=== PATIENT | female | born 1995 | race Caucasian/White ===

== ENCOUNTER 2017-03-11 08:19 | Inpatient (IN) | payer OTHER, BC ==
[~2017-03-11] VITALS: Ht 167.6 cm; Wt 83.3 kg
[2017-03-11 08:45] VITALS: BP 122/77
[2017-03-11 08:47] VITALS: BP 122/77
[2017-03-11] MEDS ORDERED: PREN1TAB60 PO (09:25)
[2017-03-11] MEDS ORDERED: FENTANYL PF 100 MCG/2ML ONE ×2 (11:36→12:05)
[2017-03-11] MEDS ORDERED: OXYTOCIN 30U/ 0.9% NaCL 500ML 500 ML IV ONE (11:46)
[2017-03-11] MEDS: D5%-LACTATED RINGERS 1,000 ML IV SCH ×2 (11:46→19:46)
[2017-03-11] MEDS ORDERED: ONDANSETRON 2MG/ML, 2ML IVPush PRN ×2 (12:00→16:00)
[2017-03-11] MEDS ORDERED: FENTANYL PF 100 MCG/2ML IV PRN (12:00)
[2017-03-11] MEDS ORDERED: FENTANYL PF 100 MCG/2ML IVPush PRN (12:00)
[2017-03-11] MEDS ORDERED: BUPIVACAINE 0.25% ONE (12:06)
[2017-03-11] MEDS ORDERED: FENTANYL/BUPIV./NS/PF 250 ML EPIDCONT ONE (12:06)
[2017-03-11] MEDS ORDERED: LIDOCAINE 1%, 20ML ONE (12:07)
[2017-03-11] MEDS ORDERED: OXYTOCIN 30U/ 0.9% NaCL 500ML 500 ML ONE (12:07)
[2017-03-11] MEDS ORDERED: MISOPROSTOL 200 MCG TABLET ONE (12:07)
[2017-03-11] MEDS ORDERED: NEWBORN KIT ONE ×2 (12:07→12:10)
[2017-03-11] MEDS: LACTATED RINGERS 1,000 ML IV SCH ×3 (12:18→23:41)
[2017-03-11 12:22] LABS: HEMATOCRIT 37.4 % (34.6-47.8); HEMOGLOBIN 12.4 g/dL (11.7-16.4)
[2017-03-11] MEDS: PLEASE ENTER HEIGHT AND WEIGHT MC SCH ×2 (13:00→21:00)
[2017-03-11] MEDS ORDERED: LIDOCAINE/PF 1.5%-EPI 1:200K, 30ML ONE (13:53)
[2017-03-11] MEDS: FENTANYL/BUPIV./NS/PF 250 ML EPIDCONT SCH (15:41)
[2017-03-11] MEDS ORDERED: EPHEDRINE 50 MG/ML, 1ML IVPush PRN (16:00)
[2017-03-11] MEDS ORDERED: LACTATED RINGERS 1,000 ML IVBOLUS PRN (16:00)
[2017-03-11] MEDS ORDERED: ONDANSETRON 2MG/ML, 2ML ONE (17:40)
[2017-03-11] MEDS ORDERED: ACETAMINOPHEN 325 MG TABLET ONE ×2 (20:25)
[2017-03-11] MEDS ORDERED: ACETAMINOPHEN 325 MG TABLET PO PRN (20:30)
[2017-03-12] MEDS ORDERED: METOCLOPRAMIDE 5 MG/ML, 2ML IV ONE (01:30)
[2017-03-12] MEDS ORDERED: SODIUM CITRATE/CITRIC ACID 30 ML UDC PO ONE (01:30)
[2017-03-12] MEDS: LACTATED RINGERS 1,000 ML IV SCH ×7 (03:46→23:41)
[2017-03-12] MEDS: D5%-LACTATED RINGERS 1,000 ML IV SCH ×3 (03:46→19:46)
[2017-03-12] MEDS: PLEASE ENTER HEIGHT AND WEIGHT MC SCH (05:00)
[2017-03-12] MEDS ORDERED: OXYTOCIN 30U/ 0.9% NaCL 500ML 500 ML ONE (11:16)
[2017-03-12] MEDS ORDERED: METHYLERGONOVINE 0.2 MG/ML IM PRN (11:30)
[2017-03-12] MEDS ORDERED: OXYTOCIN 10 UNITS/ML, 1ML IM PRN (11:30)
[2017-03-12] MEDS ORDERED: HYDROcodone/APAP 5/325 TABLET PO PRN (11:30)
[2017-03-12] MEDS ORDERED: MISOPROSTOL 200 MCG TABLET PR PRN (11:30)
[2017-03-12] MEDS ORDERED: ONDANSETRON 2MG/ML, 2ML IV PRN (11:30)
[2017-03-12] MEDS: OXYTOCIN 30U/ 0.9% NaCL 500ML 500 ML IV SCH ×2 (11:42→21:21)
[2017-03-12] MEDS ORDERED: IBUPROFEN 600 MG TABLET ONE (12:11)
[2017-03-12] MEDS: IBUPROFEN 600 MG TABLET PO PRN ×2 (12:30→19:23)
[2017-03-12 14:42] VITALS: BP 114/69
[2017-03-12] MEDS: FENTANYL/BUPIV./NS/PF 250 ML EPIDCONT SCH (15:41)
[2017-03-12] MEDS: DOCUSATE 100 MG CAPSULE PO PRN (19:24)
[2017-03-12 19:30] VITALS: BP 137/59
[2017-03-12 19:41] LABS: HEMOGLOBIN 11.5 g/dL (11.7-16.4); WHITE BLOOD COUNT 20.4 x10^3/uL (3.4-10)
[2017-03-12] MEDS ORDERED: DIPH,PERTUSS(ACELL),TET VAC/PF NC IM-VACC ONE (20:30)
[2017-03-13 00:33] VITALS: BP 101/58
[2017-03-13] MEDS: IBUPROFEN 600 MG TABLET PO PRN ×3 (03:38→19:10)
[2017-03-13] MEDS: LACTATED RINGERS 1,000 ML IV SCH ×2 (03:46→07:41)
[2017-03-13] MEDS: D5%-LACTATED RINGERS 1,000 ML IV SCH (03:46)
[2017-03-13 03:54] VITALS: BP 109/64
[2017-03-13 07:10] VITALS: BP 112/69
[2017-03-13] MEDS: OXYTOCIN 30U/ 0.9% NaCL 500ML 500 ML IV SCH (07:21)
[2017-03-13] MEDS: PRENATAL VIT/IRON/FA 1 EACH TABLET PO SCH (08:22)
[2017-03-13] MEDS: DOCUSATE 100 MG CAPSULE PO PRN ×2 (08:22→20:44)
[2017-03-13] MEDS: HYDROcodone/APAP 5/325 TABLET PO PRN ×2 (08:22→14:03)
[2017-03-13 19:30] VITALS: BP 115/69
[2017-03-13] MEDS ORDERED: DIPH,PERTUSS(ACELL),TET VAC/PF NC IM-VACC ONE (21:00)
[2017-03-13] MEDS ORDERED: PLEASE ENTER ALLERGIES MC SCH ×2 (21:00)
[2017-03-14] MEDS: IBUPROFEN 600 MG TABLET PO PRN ×2 (03:41→15:18)
[2017-03-14] MEDS: HYDROcodone/APAP 5/325 TABLET PO PRN ×3 (03:42→15:18)
[2017-03-14 07:20] VITALS: BP 116/79
[2017-03-14] MEDS: DOCUSATE 100 MG CAPSULE PO PRN (09:11)
[2017-03-14] MEDS: PRENATAL VIT/IRON/FA 1 EACH TABLET PO SCH (09:11)
[2017-03-14] MEDS ORDERED: IBUP-1222 PO (11:23)
[2017-03-14] MEDS ORDERED: DOCU-131 PO (11:24)
[2017-03-14] MEDS ORDERED: HYDR-3240 PO (11:25)
== END 2017-03-14 15:58 | disposition home or self-care (01) | DRG 775 ==
LOC: LDOP 08:19 → LDIP 11:27 → 2NW 03-12 13:50
PROVIDERS: ADMIT Specialist; ATTEND Specialist
PROC: 10E0XZZ Delivery of Products of Conception, External Approach (ICD-10-PCS; principal; 2017-03-12)
PROC: 0KQM0ZZ Repair Perineum Muscle, Open Approach (ICD-10-PCS; 2017-03-12)
PROC: 3E0S3CZ (ICD-10-PCS; 2017-03-12)
PROC: 00HU33Z Insertion of Infusion Device into Spinal Canal, Percutaneous Approach (ICD-10-PCS; 2017-03-12)
DX: O34.83 Maternal care for other abnormalities of pelvic organs, third trimester (principal); O70.1 Second degree perineal laceration during delivery; Z37.0 Single live birth; N83.202 Unspecified ovarian cyst, left side; Z3A.40 40 weeks gestation of pregnancy; Z23 Encounter for immunization; Z88.0 Allergy status to penicillin
CPT/HCPCS: 36415; 85025; 86850; 86900; 90715; J2405; J3010; J3490; J2590; J7120

== ENCOUNTER → 2017-08-14 | Outpatient (CLI) | payer BC, OTHER ==
[~2017-08-14] MED LIST: CEFAZOLIN 1,000 MG ONE; DEXAMETHASONE 4 MG/ML, 1ML ONE; DOCU-131 PO; FENTANYL PF 100 MCG/2ML ONE; FENTANYL PF 250 MCG/5ML ONE; FLUO20TA25 PO; GLYCOPYRROLATE 0.4 MG/2 ML, 2ML ONE; HYDR-3240 PO; IBUP-1222 PO; KETOROLAC 30 MG/1 ML ONE; MIDAZOLAM 1 MG/ML, 2ML ONE; NEOSTIGMINE 1 MG/ML, 10ML ONE; ONDANSETRON 2MG/ML, 2ML ONE; PREN1TAB60 PO; PROPOFOL 10 MG/ML, 20ML ONE; ROCURONIUM 10 MG/ML,10ML ONE; SODIUM CHLORIDE 0.9% PF 10ML ONE
== END ==
LOC: STAR 10:13
PROVIDERS: ATTEND Specialist
DX: Z02.9 Encounter for administrative examinations, unspecified (principal)

== ENCOUNTER 2017-08-19 10:58 | Day surgery (SDC) | payer BC, OTHER ==
[~2017-08-19] VITALS: Ht 167.6 cm; Wt 67.0 kg
[~2017-08-19 10:58] MED LIST changes: -CEFAZOLIN 1,000 MG ONE; -DEXAMETHASONE 4 MG/ML, 1ML ONE; -FENTANYL PF 100 MCG/2ML ONE; -FENTANYL PF 250 MCG/5ML ONE; -GLYCOPYRROLATE 0.4 MG/2 ML, 2ML ONE; -KETOROLAC 30 MG/1 ML ONE; -MIDAZOLAM 1 MG/ML, 2ML ONE; -NEOSTIGMINE 1 MG/ML, 10ML ONE; -ONDANSETRON 2MG/ML, 2ML ONE; -PROPOFOL 10 MG/ML, 20ML ONE; -ROCURONIUM 10 MG/ML,10ML ONE; -SODIUM CHLORIDE 0.9% PF 10ML ONE
[2017-08-19 11:34] VITALS: BP 107/68
[2017-08-19] MEDS ORDERED: LACTATED RINGERS 1,000 ML IV SCH (11:34)
[2017-08-19 11:53] LABS: HCG UR SG 1.031 (1.003-1.030)
[2017-08-19] MEDS ORDERED: BUPIVACAINE/PF 0.25% ONE (11:56)
[2017-08-19] MEDS ORDERED: EPINEPHRINE 1 MG/ML, 1ML ONE (11:56)
[2017-08-19] MEDS ORDERED: FENTANYL PF 100 MCG/2ML ONE ×2 (12:09→15:06)
[2017-08-19] MEDS ORDERED: CEFAZOLIN 1,000 MG ONE (12:09)
[2017-08-19] MEDS ORDERED: NEOSTIGMINE 1 MG/ML, 10ML ONE (12:09)
[2017-08-19] MEDS ORDERED: PROPOFOL 10 MG/ML, 20ML ONE (12:09)
[2017-08-19] MEDS ORDERED: KETOROLAC 30 MG/1 ML ONE (12:09)
[2017-08-19] MEDS ORDERED: GLYCOPYRROLATE 0.2MG/1ML, 5ML ONE (12:09)
[2017-08-19] MEDS ORDERED: MIDAZOLAM 1 MG/ML, 2ML ONE (12:09)
[2017-08-19] MEDS ORDERED: ROCURONIUM 10MG/ML,5ML ONE (12:09)
[2017-08-19] MEDS ORDERED: ONDANSETRON 2MG/ML, 2ML ONE (12:09)
[2017-08-19] MEDS ORDERED: DEXAMETHASONE 4 MG/ML, 1ML ONE (12:09)
[2017-08-19] MEDS ORDERED: ONDANSETRON 2MG/ML, 2ML IVPush PRN (12:30)
[2017-08-19] MEDS ORDERED: OXYcodone 5 MG/5 ML ORAL.SOL UDC PO PRN (12:30)
[2017-08-19] MEDS ORDERED: PROMETHAZINE 12.5 MG SUPP PR PRN (12:30)
[2017-08-19] MEDS ORDERED: ACETAMINOPHEN 325 MG TABLET PO PRN (12:30)
[2017-08-19] MEDS ORDERED: HYDROmorphone 1 MG/ML, 1ML IV PRN (12:30)
[2017-08-19] MEDS ORDERED: PROMETHAZINE 25 MG/ML, 1ML IV PRN (12:30)
[2017-08-19] MEDS ORDERED: morphine SULFATE 10 MG/ML, 1ML IV PRN (12:30)
[2017-08-19] MEDS ORDERED: ACETAMINOPHEN 650 MG/20.3 ML UDC ONE (15:05)
[2017-08-19] MEDS ORDERED: OXYcodone 5 MG/5 ML ORAL.SOL UDC ONE (15:06)
[2017-08-19] MEDS ORDERED: MEPERIDINE/PF 50 MG/ML ONE (15:06)
[2017-08-19] MEDS: FENTANYL PF 100 MCG/2ML IV PRN ×2 (15:08→15:09)
[2017-08-19] MEDS: MEPERIDINE/PF 25MG/0.5ML IVPush PRN ×2 (15:08→15:16)
[2017-08-19] MEDS ORDERED: DIPHENHYDRAMINE 50 MG/ML, 1ML ONE (15:20)
[2017-08-19] MEDS ORDERED: DIPHENHYDRAMINE 50 MG/ML, 1ML IVPush PRN (16:00)
== END 2017-08-19 19:20 | disposition home or self-care (01) ==
LOC: OUT 10:58
PROVIDERS: ATTEND Specialist
DX: N83.202 Unspecified ovarian cyst, left side (principal); Z80.0 Family history of malignant neoplasm of digestive organs; Z88.6 Allergy status to analgesic agent
CPT/HCPCS: 58662; 81025; 88305; J0171; J0690; J1100; J1200; J1885; J2175; J2250; J2405; J2704; J2710; J3010; J3490; J7120